=== PATIENT | female | born 1940 | race Caucasian/White ===

== ENCOUNTER 2016-08-28 12:06 | Emergency (ER) | payer MEDICARE | END 2016-08-28 15:01 | disposition home or self-care (01) | LOC: ER 12:06 | DX: R53.1 Weakness (principal); Z79.01 Long term (current) use of anticoagulants; I87.2 Venous insufficiency (chronic) (peripheral); I48.91 Unspecified atrial fibrillation; I11.0 Hypertensive heart disease with heart failure; I38 Endocarditis, valve unspecified; I50.9 Heart failure, unspecified; E11.9 Type 2 diabetes mellitus without complications; Z95.0 Presence of cardiac pacemaker; Z79.84 Long term (current) use of oral hypoglycemic drugs; Z79.899 Other long term (current) drug therapy | CPT/HCPCS: 36415; 80053; 81003; 85025; 85610; 85730; 93005 ==

== ENCOUNTER 2016-09-06 11:29 | Emergency (ER) | payer MEDICARE ==
[2016-09-06] MEDS ORDERED: ASPIRIN 81 MG CHEW TAB ONE (12:11)
== END 2016-09-06 16:51 | disposition home or self-care (01) ==
LOC: ER 11:29
DX: I50.42 Chronic combined systolic (congestive) and diastolic (congestive) heart failure (principal); R07.89 Other chest pain; R07.2 Precordial pain; Z95.0 Presence of cardiac pacemaker; I38 Endocarditis, valve unspecified; I10 Essential (primary) hypertension; Z79.899 Other long term (current) drug therapy; Z79.01 Long term (current) use of anticoagulants
CPT/HCPCS: 36415; 71010; 80053; 81003; 82550; 83735; 84484; 85025; 85610; 85730; 93005